=== PATIENT | female | born 1980 | race Caucasian/White ===

== ENCOUNTER 2017-04-23 03:34 | Emergency (ER) | payer MEDICARE, OTHER ==
--- NOTE | ~2017-04-23 | CT4 ---
[facility] A Service of [facility] RADIOLOGY TEXT RESULTS PATIENT: SUDHA LARA LOCATION: [facility] : 80 UNIT #: [id number] AGE: [address]: Brianne Rivera MD SEX: F ORDER DR: [id number] [facility]. [place], [place] [address] [id number] E MR#: [id number] #: [id number] NAME: SUDHA LARA : 1980 SEX: F STUDY DATE/TIME: 04/23/2017 7:04 UNIT: PRATIBHA ROOM: STUDY DESCRIPTION: CT Abd and Pelv Wo Cont Attending Physician: Brianne Rivera M.D. Ordering Physician: Brianne Rivera M.D. Primary Care Physician: Primary Care Physician No MEDICAL IMAGING REPORT This report is preliminary unless electronic signature is present EXAM CT abdomen and pelvis without contrast HISTORY Right flank pain since yesterday morning COMPARISON There is no comparison TECHNIQUE Axial 3 mm images were obtained through the abdomen and pelvis without IV or oral contrast. This CT exam was performed with one or more of the following radiation dose reduction techniques: automatic exposure control, adjustment of mA and/or kV according to patient size, and iterative reconstruction. FINDINGS Lung bases are clear. The liver, gallbladder, spleen, pancreas, adrenal glands and left kidney are normal. The right kidney has hydronephrosis. This is due to a proximal ureteral stone measuring 5 mm in diameter. The aorta is normal in size and there is no adenopathy. The bowel is normal. The uterus appears to have a posterior partially exophytic fibroid. This is an isodense lesion projecting posterior lip in the uterus; it is about 4.7 cm in diameter. There are no adnexal masses. The bladder is normal. the bones are unremarkable. IMPRESSION 1. 5 mm proximal right ureteral stone with moderate hydronephrosis. 2. 4.7 cm uterine fibroid. 3. Otherwise normal. [facility] A Service of [facility] RADIOLOGY TEXT RESULTS PATIENT: SUDHA LARA LOCATION: [facility] : 80 UNIT #: [id number] AGE: [address]: Brianne Rivera MD SEX: F ORDER DR: Dictated by... Kwan Lee M.D. THIS IS AN ELECTRONICALLY VERIFIED REPORT Kwan Lee M.D. at 04/24/2017 7:26 AM FEL/to TD: 04/23/2017 14:12 JOB #: [id number] MEDICAL IMAGING REPORT Page 1 of 1 COPY
[2017-04-23 05:45] LABS: URINE SOURCE CLEAN CATCH
[2017-04-23 06:12] LABS: URINE APPEARANCE CLOUDY; URINE BLOOD 4+ (NEG); URINE GLUCOSE NORM (NORM); URINE KETONE 2+ (NEG); URINE LEUKOCYTE ESTERASE NEG (NEG); URINE NITRATE POS (NEG); URINE PROTEIN 1+ (NEG); URINE SPECIFIC GRAVITY 1.025 (1.003-1.035); URINE UROBILINOGEN 8 MG/DL (NORM)
[2017-04-23 06:15] LABS: URINE BILIRUBIN NEG (NEG)
[2017-04-23 06:16] LABS: URINE COLOR ORANGE
[2017-04-23 06:34] LABS: URBCS1 AUWI 200-300 /[HPF] (0-2); URINE AMORPHOUS SEDIMENT AMORP URATES; URINE BACTERIA AUWI 1+ (NEGATIVE); URINE CRYSTALS CALCIUM OXALATE /[HPF]; URINE MUCUS PRESENT; URINE SQUAMOUS EPITHELIAL CELL OCCAS /[HPF]
== END 2017-04-23 08:18 | disposition home or self-care (01) ==
LOC: CED 03:34
PROVIDERS: Emergency Medicine
DX: N13.2 Hydronephrosis with renal and ureteral calculous obstruction (principal); Z88.1 Allergy status to other antibiotic agents; Z88.8 Allergy status to other drugs, medicaments and biological substances
CPT/HCPCS: 74176; 81003; 84703; 87086; 99284